=== PATIENT | male | born 2000 | race Caucasian/White ===

== ENCOUNTER 2021-01-01 14:38 | Emergency (ER) | payer MEDICARE, OTHER | END 2021-01-01 15:37 | disposition home or self-care (01) | LOC: FER 14:38 | DX: S60.450A Superficial foreign body of right index finger, initial encounter (principal); W45.8XXA Other foreign body or object entering through skin, initial encounter; Y92.009 Unspecified place in unspecified non-institutional (private) residence as the place of occurrence of the external cause | CPT/HCPCS: 99283 ==

== ENCOUNTER 2021-12-26 22:59 | Emergency (ER) | payer MEDICARE, OTHER | END 2021-12-27 00:01 | disposition left against medical advice (07) | LOC: FER 22:59 | DX: H57.89 Other specified disorders of eye and adnexa (principal); Z53.29 Procedure and treatment not carried out because of patient's decision for other reasons | CPT/HCPCS: 99281 ==